=== PATIENT | female | born 1940 | race African-American/Black ===

== ENCOUNTER 2016-07-06 21:25 | Emergency (ER) | payer MEDICARE ==
[~2016-07-06 21:25] MED LIST: ACET325 PO; AMIT10 PO; CLOP75 PO; GLUC10TA3 PO; LEVEMIR SQ; LEVO88TA21 PO; LISI-363 PO; ST JTAB PO; TRAD5TAB PO; VITA100020 IM
[2016-07-06 21:26] VITALS: BP 155/88; PULSE 93; RESP 18; TEMP 98; O2SAT 99
[2016-07-06] MEDS ORDERED: AMIT10TA6 PO (21:48)
[2016-07-06] MEDS ORDERED: LEVEMIR SQ (21:48)
[2016-07-06] MEDS ORDERED: NOVOLOGP2 SQ (21:48)
[2016-07-06] MEDS ORDERED: LEVO88TA30 PO (21:51)
[2016-07-06] MEDS ORDERED: TRAD5TAB PO (21:51)
[2016-07-06] MEDS ORDERED: GLIP10TA6 PO (21:51)
[2016-07-06] MEDS ORDERED: LISI-515 PO (21:51)
[2016-07-06] MEDS ORDERED: ASPI1TAB69 PO (21:51)
--- NOTE | 2016-07-06 22:04 | PD ---
HPI Chief Complaint: Diabetic Time Seen by Provider: 21:39 Travel History International Travel<30 days: No Contact w/Intl Traveler<30days: No Traveled to known affect area: No History of Present Illness HPI The patient is a 75 year old female who presents to the [facility] emergency department with a history of at 9 PM accidentally administering 14 units of NovoLog insulin when she thought she was administering Levemir. The patient reports that this evening prior to eating she would normally give 3 units of NovoLog, however she forgot. The patient reports that she then decided to just administer the Levemir when she mixed up the bottles and gave the NovoLog instead at the Levemir dose. The patient reports that immediately when she did this she ate some cookies and had some milk. She reports that she has not checked her blood sugar today. She reports that she's been diabetic since 40 years of age. He reports that she lives at home alone. The patient's blood sugar on arrival was noted to be 150. The patient denies any recent fevers , cough, congestion, neck pain, chest pain, shortness of breath, abdominal pain , vomiting, diarrhea, urinary symptoms, or neurologic symptoms. [facility] Past Medical History Narrative Medical The patient's past medical history is significant for hypertension, diabetes mellitus, hyperlipidemia, hypothyroid disorder, degenerative disc disease with chronic neck and back pain. Arthritis: No Asthma: No Autoimmune Disease: No Anxiety: No Depression: No Heart Rhythm Problems: No Cancer: No Cardiovascular Problems: No High Cholesterol: Yes (on medication) Chemotherapy: No Chest Pain: No Congestive Heart Failure: No COPD: No Cerebrovascular Accident: Yes Diabetes: Yes (15 years) Patient Takes Glucophage: No Diminished Hearing: No Endocrine: Yes GERD: No Genitourinary: No Headaches: Yes Hepatitis: No Hiatal Hernia: No Hypertension: Yes Immune Disorder: No Kidney Stones: No Musculoskeletal: Yes (muscle and stiffness in the neck/CERVICAL SPINE ABNORM) Neurologic: Yes (headaches) Psychiatric: No Reproductive: No Respiratory: No Immunizations Current: Yes Migraines: No Radiation Therapy: No Renal Failure: No Seizures: No Sickle Cell Disease: No Sleep Apnea: No Thyroid Disease: Yes Ulcer: No Tetanus Vaccination: < 5 Years Influenza Vaccination: No Past Surgical History Narrative Surgical The patient's past surgical history is significant for cholecystectomy, hysterectomy, tonsillectomy. Abdominal Surgery: Yes (cholecystectomy) AICD: No Arteriovenous Shunt: No Cardiac Surgery: No Ear Surgery: No Endocrine Surgery: No Eye Surgery: No Genitourinary Surgery: No Gynecologic Surgery: Yes (partial hysterectomy lumpectomy ni) Insulin Pump: No Joint Replacement: No Oral Surgery: Yes (tonsillectomy) Pacemaker: No Thoracic Surgery: No Other Surgery: Yes Social History Alcohol Use: Yes (rare) Tobacco Use: No Substance Use: No Allergies-Medications (Allergen,Severity, Reaction): Coded Allergies: Erythromycin (Verified Allergy, Severe, swelling, 07/06/16) Amlodipine (Verified Allergy, Unknown, Swelling, 07/06/16) Atorvastatin (Verified Allergy, Unknown, Swelling, 07/06/16) CRESTOR (Verified Allergy, Unknown, Swelling, 07/06/16) Tamiflu (Verified Allergy, Unknown, HALLUCINATIONS, 07/06/16) Uncoded Allergies: VITAMIN D3 (Allergy, Unknown, Swelling, 01/29/16) Reported Meds & Prescriptions Reported Meds & Active Scripts Active Reported Lisinopril 20 Mg Tab 20 Mg PO DAILY Glipizide 10 Mg Tab 20 Mg PO DAILY Take 30 minutes before a meal Levoxyl (Levothyroxine Sodium) 88 Mcg Tab 88 Mcg PO DAILY Tradjenta (Linagliptin) 5 Mg Tab 5 Mg PO DAILY Aspirin 81 Mg Tabdr 81 Mg PO DAILY Novolog Inj (Insulin Aspart) 1,000 Unit/10 Ml Vial 3 Units SQ HS Max dose at bedtime:( )units; sugars less than 70,(0)units; sugars 150-199,(1) unit; sugars 200-249,(3) units; sugars 250-299,(5) units; sugars 300-349,(7) units; sugars greater than 349,(9) units Levemir Inj (Insulin Detemir) 1,000 unit/ 10 ML Vial 14 Units SQ HS Do not mix with any other Insulin. Amitriptyline (Amitriptyline HCl) 10 Mg Tab 5 Mg PO HS Review of Systems General / Constitutional: No: Fever Eyes: No: Visual changes HENT: No: Headaches Cardiovascular: No: Chest Pain or Discomfort Respiratory: No: Shortness of Breath Gastrointestinal: No: Abdominal Pain Genitourinary: No: Dysuria Musculoskeletal: No: Pain Skin: No Rash Neurologic: No: Weakness Psychiatric: No: Depression Endocrine: No: Polydipsia Hematologic/Lymphatic: No: Easy Bruising Physical Exam Narrative General: The patient is a well-developed well-nourished female in no acute distress. Head and Neck exam: Head is normocephalic atraumatic. Eyes: EOMI, pupils are equal round and reactive to light. Nose: Midline septum with pink mucous membranes Mouth: Dentition unremarkable. Moist mucus membranes. Posterior oropharynx is not erythematous. No tonsillar hypertrophy. Uvula midline. Airway patent. Neck: No palpable lymphadenopathy. No nuchal rigidity. No thyromegaly. Cardiovascular: Regular rate and rhythm without murmurs, gallops, or rubs. Lungs: Clear to auscultation bilaterally. No wheezes, rhonchi, or rales. Abdomen: Soft, without tenderness to palpation in all 4 quadrants of the abdomen. No guarding, rebound, or rigidity. Negative [place] sign. Extremities: No clubbing, cyanosis, or edema. No calf tenderness on palpation. Back: No spinous process tenderness to palpation. No costovertebral angle tenderness to palpation. Neurologic Exam: Grossly nonfocal. Skin Exam: No rash noted. Intact skin that is warm and dry. Data Data Last Documented VS Vital Signs Date Time Temp Pulse Resp B/P Pulse Ox O2 Delivery O2 Flow Rate FiO2 07/06/16 21:26 98.0 93 18 155/88 99 Room Air Orders Complete Blood Count With Diff (07/06/16 21:59) Basic Metabolic Panel (Bmp) (07/06/16 21:59) Magnesium (Mg) (07/06/16 21:59) Iv Access Insert/Monitor (07/06/16 21:59) Ecg Monitoring (07/06/16 21:59) Oximetry (07/06/16 21:59) Labs Laboratory Tests Test 07/06/16 22:08 White Blood Count 6.2 TH/MM3 Red Blood Count 4.95 MIL/MM3 Hemoglobin 10.4 GM/DL Hematocrit 32.8 % Mean Corpuscular Volume 66.2 FL Mean Corpuscular Hemoglobin 20.9 PG Mean Corpuscular Hemoglobin 31.6 % Concent Red Cell Distribution Width 17.4 % Platelet Count 295 TH/MM3 Mean Platelet Volume 8.3 FL Neutrophils (%) (Auto) 49.0 % Lymphocytes (%) (Auto) 36.7 % Monocytes (%) (Auto) 8.5 % Eosinophils (%) (Auto) 5.1 % Basophils (%) (Auto) 0.7 % Neutrophils # (Auto) 3.0 TH/MM3 Lymphocytes # (Auto) 2.3 TH/MM3 Monocytes # (Auto) 0.5 TH/MM3 Eosinophils # (Auto) 0.3 TH/MM3 Basophils # (Auto) 0.0 TH/MM3 CBC Comment AUTO DIFF MDM Medical Decision Making Medical Screen Exam Complete: Yes Emergency Medical Condition: Yes Medical Record Reviewed: Yes Differential Diagnosis Accidental administration of long dose of insulin, versus intentional overdose of insulin. Narrative Course During the course of the patients emergency department visit, the patients history, examination, and differential diagnosis were reviewed with the patient. The patient had IV access obtained and blood work sent for analysis. The patient was placed on a play writer with oximetry and blood pressure monitoring. Her initial blood sugar was 150. This will be rechecked at 10:30 PM. The patients laboratory studies were reviewed and remarkable for a white count of 6.2, hemoglobin 10.4, platelets 295 with a monocytosis at 8.5, repeat blood sugar at 10:30 PM is 165. The patient at that point decided that she wanted to leave. I explained that the basic metabolic profile is still pending and she will, however the patient reports that she feels comfortable going home. The patient was instructed that she would have to leave AGAINST MEDICAL ADVICE if she plans on leaving prior to the conclusion of her workup. AMA: The risks of leaving against medical advice without further evaluation treatment were discussed with the patient. These risks include recurrent hypoglycemia, possible stroke, or . The patient indicated understanding of these risks and appeared to have the capacity to make this decision. Diagnosis Primary Impression: Accidental medication error Qualified Code: T50.901A - Accidental medication error, initial encounter Referrals: Primary Care Physician 2 days Patient Instructions: General Instructions Med/Other Pt SpecificInfo: No Change to Meds Disposition: 07 AGAINST MEDICAL ADVICE Condition: Stable Precious Wilkes MD Jul 06, 2016 22:04
[2016-07-06 22:31] LABS: BASOPHIL % 0.7 % (0.0-2.0); EOSINOPHIL # 0.3 TH/MM3 (0-0.4); EOSINOPHIL % 5.1 % (0.0-4.0); HEMATOCRIT 32.8 % (35.0-46.0); HEMO FLAGS AUTO DIFF; LYMPH % 36.7 % (9.0-44.0); LYMPHOCYTE # 2.3 TH/MM3 (1.0-4.8); MEAN CELL VOLUME 66.2 FL (80.0-100.0); MEAN CORPUSCULAR HEMOGLOBIN 20.9 PG (27.0-34.0); MEAN CORPUSCULAR HGB CONC 31.6 % (32.0-36.0); MONO % 8.5 % (0.0-8.0); PLATELET COUNT 295 TH/MM3 (150-450); RED BLOOD COUNT 4.95 MIL/MM3 (4.00-5.30); RED CELL DISTRIBUTION WIDTH 17.4 % (11.6-17.2); WHITE BLOOD COUNT 6.2 TH/MM3 (4.0-11.0)
[2016-07-06 23:05] LABS: BICARBONATE 22.1 MEQ/L (21.0-32.0); MAGNESIUM 1.9 MG/DL (1.5-2.5)
[2016-07-06 23:06] LABS: POTASSIUM 4.3 MEQ/L (3.5-5.1)
[2016-07-06 23:10] LABS: ACANTHOCYTES OCC (NORMAL); OVALOCYTES 1+ (NORMAL); PLATELET ESTIMATE SMEAR NORMAL (NORMAL); PLATELET MORPHOLOGY NORMAL (NORMAL); SCAN/DIFF AUTO DIFF CONFIRMED
== END 2016-07-06 23:07 | disposition left against medical advice (07) ==
LOC: NEPE 21:25
DX: T38.3X1A Poisoning by insulin and oral hypoglycemic [antidiabetic] drugs, accidental (unintentional), initial encounter (principal); E11.9 Type 2 diabetes mellitus without complications; E03.9 Hypothyroidism, unspecified; Z79.4 Long term (current) use of insulin; Z79.899 Other long term (current) drug therapy
CPT/HCPCS: 80048; 83735; 85025; 99283

== ENCOUNTER 2016-08-26 13:22 | Emergency (ER) | payer MEDICARE ==
[~2016-08-26] VITALS: Ht 162.6 cm; Wt 68.0 kg
[~2016-08-26 13:22] MED LIST changes: -ACET325 PO; -AMIT10 PO; +AMIT10TA6 PO; +ASPI1TAB69 PO; -CLOP75 PO; +GLIP10TA6 PO; -GLUC10TA3 PO; -LEVO88TA21 PO; +LEVO88TA30 PO; -LISI-363 PO; +LISI-515 PO; +NOVOLOGP2 SQ; -ST JTAB PO; -VITA100020 IM
[2016-08-26 13:24] VITALS: BP 191/88; PULSE 88; RESP 20; TEMP 98.2; O2SAT 97
--- NOTE | 2016-08-26 14:02 | PD ---
Physical Exam Date Seen by Provider: August 26, 2016 Time Seen by Provider: 13:57 Narrative Pt is a 75 year old female presenting to the ED for evaluation of high blood pressure. Pt has history of HTN, currently on lisinopril. She was recently prescribed carvedilol and hydralazine. Pt has been checking her BP every 3 hours [address] after work[address] Dr. Bautista is her primary. She denies any chest pain, SOB, peripheral edema. She has been on these new medications for a week and reports compliance. She was sent by PCP. Last dose of lisinopril, carvedilol, hydralazine around 0730 this morning. BP elevated otherwise VSS. Pt in no acute distress. Awaiting bed placement. Data Data Last Documented VS Vital Signs Date Time Temp Pulse Resp B/P Pulse Ox O2 Delivery O2 Flow Rate FiO2 08/26/16 13:24 98.2 88 20 191/88 97 Room Air [facility] Supervised Visit with ABAD: Lidya Degroot August 26, 2016 14:02
--- NOTE | 2016-08-26 14:59 | PD ---
HPI Chief Complaint: Hypertension Time Seen by Provider: 14:48 Travel History International Travel<30 days: No Contact w/Intl Traveler<30days: No Traveled to known affect area: No History of Present Illness HPI 75-year-old female history of hypertension. She presents for evaluation of hypertension. She reports that she was previously on a regimen of lisinopril and that her thiazide time she discontinued the hydrochlorothiazide 3 months ago because of is causing cramps. Last week in addition to lisinopril she was initiated on hydralazine and carvedilol by her primary care physician Dr. Boone. She checked her blood pressure today and was elevated, systolic 190s, and she called her primary care office and was referred here. Denies any headache, blurred vision, chest pain, shortness of breath, nausea, vomiting, slurred speech. She does endorse an occasional 2-3 seconds "fluttering sensation" in her chest approximate 5-6 times a day over the past 3 months. She has no other complaints at this time. PFSH Past Medical History Hx Anticoagulant Therapy: Yes (asa 81) Arthritis: No Asthma: No Autoimmune Disease: No Anxiety: No Depression: No Heart Rhythm Problems: No Cancer: No Cardiovascular Problems: Yes (htn) High Cholesterol: Yes (on medication) Chemotherapy: No Chest Pain: No Congestive Heart Failure: No COPD: No Diabetes: Yes Diminished Hearing: No Endocrine: Yes GERD: No Genitourinary: No Headaches: Yes Hepatitis: No Hiatal Hernia: No Hypertension: Yes Immune Disorder: No Kidney Stones: No Musculoskeletal: Yes (muscle and stiffness in the neck/CERVICAL SPINE ABNORM) Neurologic: Yes (headaches) Psychiatric: No Reproductive: No Respiratory: No Immunizations Current: Yes Migraines: No Radiation Therapy: No Renal Failure: No Seizures: No Sickle Cell Disease: No Sleep Apnea: No Thyroid Disease: Yes Ulcer: No Past Surgical History Abdominal Surgery: Yes (cholecystectomy) AICD: No Arteriovenous Shunt: No Cardiac Surgery: No Ear Surgery: No Endocrine Surgery: No Eye Surgery: No Genitourinary Surgery: No Gynecologic Surgery: Yes (partial hysterectomy lumpectomy ni) Insulin Pump: No Joint Replacement: No Oral Surgery: Yes (tonsillectomy) Pacemaker: No Thoracic Surgery: No Other Surgery: Yes Social History Alcohol Use: Yes (rare) Tobacco Use: No Substance Use: No Allergies-Medications (Allergen,Severity, Reaction): Coded Allergies: Erythromycin (Verified Allergy, Severe, swelling, 08/26/16) Tamiflu (Verified Allergy, Severe, swelling, 08/26/16) Amlodipine (Verified Allergy, Intermediate, Swelling, 08/26/16) Atorvastatin (Verified Allergy, Intermediate, Swelling, 08/26/16) CRESTOR (Verified Allergy, Unknown, Swelling, 08/26/16) Hydrochlorothiazide (Verified Adverse Reaction, Severe, cramping, 08/26/16) Uncoded Allergies: VITAMIN D3 (Allergy, Unknown, Swelling, 01/29/16) Reported Meds & Prescriptions Reported Meds & Active Scripts Active Reported Lisinopril 20 Mg Tab 20 Mg PO DAILY Glipizide 10 Mg Tab 20 Mg PO DAILY Take 30 minutes before a meal Levoxyl (Levothyroxine Sodium) 88 Mcg Tab 88 Mcg PO DAILY Tradjenta (Linagliptin) 5 Mg Tab 5 Mg PO DAILY Aspirin 81 Mg Tabdr 81 Mg PO DAILY Novolog Inj (Insulin Aspart) 1,000 Unit/10 Ml Vial 3 Units SQ HS Max dose at bedtime:( )units; sugars less than 70,(0)units; sugars 150-199,(1) unit; sugars 200-249,(3) units; sugars 250-299,(5) units; sugars 300-349,(7) units; sugars greater than 349,(9) units Levemir Inj (Insulin Detemir) 1,000 unit/ 10 ML Vial 14 Units SQ HS Do not mix with any other Insulin. Amitriptyline (Amitriptyline HCl) 10 Mg Tab 5 Mg PO HS Review of Systems Except as stated in HPI: all other systems reviewed are Neg Physical Exam Narrative GENERAL: Pleasant well developed well-nourished female in no acute distress resting comfortably on hospital bed. SKIN: Warm and dry. HEAD: Atraumatic. Normocephalic. EYES: Pupils equal and round. No scleral icterus. No injection or drainage. ENT: No nasal bleeding or discharge. Mucous membranes pink and moist. NECK: Trachea midline. No JVD. CARDIOVASCULAR: Regular rate and rhythm. No murmur appreciated. RESPIRATORY: No accessory muscle use. Clear to auscultation. Breath sounds equal bilaterally. GASTROINTESTINAL: Abdomen soft, non-tender, nondistended. Hepatic and splenic margins not palpable. MUSCULOSKELETAL: No obvious deformities. No edema. NEUROLOGICAL: Awake and alert. No obvious cranial nerve deficits. Motor grossly within normal limits. Normal speech. PSYCHIATRIC: Appropriate mood and affect; insight and judgment normal. Data Data Last Documented VS Vital Signs Date Time Temp Pulse Resp B/P Pulse Ox O2 Delivery O2 Flow Rate FiO2 08/26/16 15:21 75 17 172/78 99 Room Air 08/26/16 13:24 98.2 Orders Complete Blood Count With Diff (08/26/16 14:54) Basic Metabolic Panel (Bmp) (08/26/16 14:54) Magnesium (Mg) (08/26/16 14:54) Thyroid Stimulating Hormone (08/26/16 14:54) Electrocardiogram (08/26/16 ) Labetalol Inj (Trandate Inj) (08/26/16 15:00) Labs Laboratory Tests Test 08/26/16 14:40 White Blood Count 5.2 TH/MM3 Red Blood Count 5.02 MIL/MM3 Hemoglobin 10.4 GM/DL Hematocrit 33.3 % Mean Corpuscular Volume 66.4 FL Mean Corpuscular Hemoglobin 20.7 PG Mean Corpuscular Hemoglobin 31.1 % Concent Red Cell Distribution Width 17.5 % Platelet Count 286 TH/MM3 Mean Platelet Volume 8.9 FL Neutrophils (%) (Auto) 53.9 % Lymphocytes (%) (Auto) 30.6 % Monocytes (%) (Auto) 10.6 % Eosinophils (%) (Auto) 4.0 % Basophils (%) (Auto) 0.9 % Neutrophils # (Auto) 2.8 TH/MM3 Lymphocytes # (Auto) 1.6 TH/MM3 Monocytes # (Auto) 0.6 TH/MM3 Eosinophils # (Auto) 0.2 TH/MM3 Basophils # (Auto) 0.0 TH/MM3 CBC Comment AUTO DIFF Sodium Level 135 MEQ/L Potassium Level 4.0 MEQ/L Chloride Level 105 MEQ/L Carbon Dioxide Level 23.3 MEQ/L Anion Gap 7 MEQ/L Blood Urea Nitrogen 24 MG/DL Creatinine 1.47 MG/DL Estimat Glomerular Filtration 42 ML/MIN Rate Random Glucose 100 MG/DL Calcium Level 9.1 MG/DL Magnesium Level 2.1 MG/DL Thyroid Stimulating Hormone 1.280 uIU/ML 3rd Gen [facility] Medical Decision Making Medical Screen Exam Complete: Yes Emergency Medical Condition: Yes Medical Record Reviewed: Yes Interpretation(s) EKG sinus rhythm CBC hemoglobin 10.4 otherwise unremarkable BMP BUN 24, creatinine 1.47 Differential Diagnosis Essential hypertension, hypertensive urgency, hypertensive emergency, PVCs, PACs , atrial fibrillation, heart block, sinus tachycardia, atrial flutter Narrative Course 75-year-old female with recent hypertensive medication change last week presents because her blood pressure was elevated today at home. She is essentially asymptomatic in regard to this issue. She does mention on review of systems that she has had an occasional 2-3 second fluttering palpitation sensation 5-6 times a day for the past 3 months, currently not experiencing any symptoms. There no associated symptoms. Plan is for basic lab work, TSH, EKG, ECG monitoring. Initially IV labetalol was ordered however her blood pressure came down spontaneously to be systolic 170s range. The patient's lab work is been reviewed. Her kidney function, hemoglobin are stable with comparison to previous on record. At this point in time the plan will be to have the patient follow up with her primary care physician for medication adjustment. she may benefit from outpatient Holter monitoring if the occasional palpitations persist. She is agreeable with this plan. The patient did review her medications and realized that she was taking her carvedilol and hydralazine at the inappropriate doses and this is likely contributing to her breakthrough hypertension. Diagnosis Primary Impression: Accidental medication error Qualified Code: T50.901A - Accidental medication error, initial encounter Additional Impressions: Hypertension Qualified Code: I15.9 - Secondary hypertension Palpitations Additional Instructions: As discussed, monitor blood pressure and a regular basis, keep a journal of the readings and follow up with primary care next week to discuss. You may benefit from outpatient Holter monitoring to further evaluate these intermittent palpitations. Return for any emergent medical conditions. Med/Other Pt SpecificInfo: No Change to Meds Disposition: 01 DISCHARGE HOME Condition: Stable Markus Leary August 26, 2016 14:59
[2016-08-26] MEDS ORDERED: LABETALOL HCL 100 MG/20 ML VIAL IV PUSH ONE (15:00)
[2016-08-26 15:21] VITALS: BP 172/78; PULSE 75; RESP 17; O2SAT 99
[2016-08-26 16:12] LABS: AUTOMATED NEUTROPHIL # 2.8 TH/MM3 (1.8-7.7); BASOPHIL % 0.9 % (0.0-2.0); EOSINOPHIL # 0.2 TH/MM3 (0-0.4); HEMATOCRIT 33.3 % (35.0-46.0); LYMPH % 30.6 % (9.0-44.0); LYMPHOCYTE # 1.6 TH/MM3 (1.0-4.8); MEAN CELL VOLUME 66.4 FL (80.0-100.0); MEAN CORPUSCULAR HEMOGLOBIN 20.7 PG (27.0-34.0); MEAN CORPUSCULAR HGB CONC 31.1 % (32.0-36.0); MONO % 10.6 % (0.0-8.0); NEUT % 53.9 % (16.0-70.0); PLATELET COUNT 286 TH/MM3 (150-450); RED BLOOD COUNT 5.02 MIL/MM3 (4.00-5.30); RED CELL DISTRIBUTION WIDTH 17.5 % (11.6-17.2); WHITE BLOOD COUNT 5.2 TH/MM3 (4.0-11.0)
[2016-08-26 16:13] LABS: HEMO FLAGS AUTO DIFF
[2016-08-26 16:28] LABS: BICARBONATE 23.3 MEQ/L (21.0-32.0); MAGNESIUM 2.1 MG/DL (1.5-2.5)
[2016-08-26] MEDS ORDERED: CARV12.52 PO (16:59)
[2016-08-26] MEDS ORDERED: HYDR10TA23 PO (16:59)
[2016-08-26 17:00] VITALS: BP 174/87
[2016-08-26 17:01] LABS: TARGET CELLS 1+ (NORMAL)
[2016-08-26 17:02] LABS: PLATELET ESTIMATE SMEAR NORMAL (NORMAL); PLATELET MORPHOLOGY NORMAL (NORMAL); SCAN/DIFF AUTO DIFF CONFIRMED
--- NOTE | 2016-08-26 17:54 | EKG ---
Date Performed: 08/26/2016 Time Performed: 15:24:13 PTAGE: 75 years EKG: Sinus rhythm POSSIBLE RIGHT VENTRICULAR CONDUCTION DELAY BORDERLINE ECG NO SIGNIFICANT CHANGE FROM PRIOR ELECTROC ARDIOGRAM. PREVIOUS TRACING : 10/17/2014 16.12 DOCTOR: Ilia Orozco Interpretating Date/Time 08/26/2016 17:53:10
== END 2016-08-26 17:28 | disposition home or self-care (01) ==
LOC: NEPD 13:22
DX: T44.7X1A Poisoning by beta-adrenoreceptor antagonists, accidental (unintentional), initial encounter (principal); T46.5X1A Poisoning by other antihypertensive drugs, accidental (unintentional), initial encounter; R00.2 Palpitations; I15.9 Secondary hypertension, unspecified; E11.9 Type 2 diabetes mellitus without complications; Z79.4 Long term (current) use of insulin; E78.00 Pure hypercholesterolemia, unspecified; Z79.82 Long term (current) use of aspirin; Y92.9 Unspecified place or not applicable
CPT/HCPCS: 80048; 83735; 84443; 85025; 93005